=== PATIENT | male | born 2000 | race Caucasian/White ===

== ENCOUNTER 2022-01-08 19:10 | Emergency (ER) | payer OTHER, SELFPAY ==
[2022-01-08 19:22] VITALS: BP 148/88; PULSE 113; RESP 16; TEMP 36.9; O2SAT 98
--- NOTE | 2022-01-08 19:43 | ED.BACK ---
HPI - Back Pain/Injury General Chief Complaint: Back Pain/Injury Stated Complaint: low back pain Time Seen by Provider: 01/08/22 19:43 Source: patient Mode of arrival: ambulatory Limitations: no limitations History of Present Illness HPI Narrative: 21-year-old male presented for complaint of left low back pain radiating to leg after lifting heavy object at work 3 days ago. Endorses debilitating pain the following day with occasional numbness down the leg. Endorses it is improving and he is able to walk and move more today. Currently denies numbness, tingling, or weakness of the left lower extremity. Feels an ache when he sitting. He has taken ibuprofen and aspirin for symptoms. Endorses a history of sciatica secondary to herniated disks about 6 years ago. Related Data Home Medications Medication Instructions Recorded Confirmed atorvastatin 40 mg tablet 40 mg PO DAILY 01/08/22 01/08/22 ergocalciferol (vitamin D2) 1,250 1,250 mcg PO WEEKLY 01/08/22 01/08/22 mcg (50,000 unit) capsule fenofibrate 160 mg tablet 160 mg PO DAILY 01/08/22 01/08/22 Allergies Allergy/AdvReac Type Severity Reaction Status Date / Time No Known Allergies Allergy Verified 01/08/22 19:49 Review of Systems Review of Systems: CONSTITUTIONAL: Denies body aches, fever, chills CARDIOVASCULAR: Denies chest pain, palpitations, or edema. RESPIRATORY: Denies cough or dyspnea. GASTROINTESTINAL: Denies abdominal pain, nausea, vomiting, or diarrhea. SKIN: Denies rash, itching, or wounds. MUSCULOSKELETAL: reports low back pain NEUROLOGIC: Denies headache, tingling, or weakness. All systems reviewed & are unremarkable except as noted in HPI and below [facility] Comments At time of signature, I have reviewed and agree with nursing past medical, surgical, social and family history unless otherwise noted. Please see nursing chart for further information. There is no relevant family history pertinent to the presenting complaint Exam Narrative: GENERAL: appears in pain CHEST: Speaks in full sentences. No respiratory distress. HEART: Regular rate and rhythm. Normal and equal peripheral pulses. EXTREMITIES: No vertebral point tenderness. LLE has normal strength and sensation, slightly limited range of motion at left hip due to pain with movement. No ecchymosis, No point tenderness to hip. No open wounds or obvious deformity; alignment normal, pulse palpable and equal bilaterally, skin warm, dry, pink. Capillary refill less than 3 seconds. SKIN: Warm, dry, no rash. NEURO: Alert and oriented x3. PSYCH: Normal mood and affect Course Course Emergency Course: Patient is aware of diagnosis, understands and agrees to treatment plan. Anticipatory guidance given. Patient agrees to follow-up as directed and is aware of reasons to seek care at the emergency department. Portions of this record may have been created with voice recognition software Level of Care: Express Care Visit Vital Signs Vital signs: Vital Signs Temperature 98.4 F 01/08/22 19:22 Pulse Rate 113 H 01/08/22 19:22 Respiratory Rate 16 01/08/22 19:22 Blood Pressure 148/88 H 01/08/22 19:22 Pulse Oximetry 98 01/08/22 19:22 Oxygen Delivery Room Air 01/08/22 19:22 Temperature 98.4 F 01/08/22 19:22 Pulse Rate 113 H 01/08/22 19:22 Respiratory Rate 16 01/08/22 19:22 Blood Pressure 148/88 H 01/08/22 19:22 Pulse Oximetry 98 01/08/22 19:22 Oxygen Delivery Room Air 01/08/22 19:22 Reviewed MDM - Back Pain/Injury MDM Narrative Medical decision making narrative: Pt reports improvement in symptoms, will defer imaging. Advised supportive measures and signs/symptoms to go to the ER. Advised to closely follow-up with primary care provider regarding possible physical therapy or additional imaging if needed. Pt is appropriate for outpt treatment and f/u. Differential Diagnosis Differential diagnosis: Likely lumbar radiculopathy, sciatica, strain of lumbar r
== END 2022-01-08 20:08 | disposition home or self-care (01) ==
PROVIDERS: Emergency Provider Nurse Practitioner Family
DX: M54.16 Radiculopathy, lumbar region (principal); E78.00 Pure hypercholesterolemia, unspecified
CPT/HCPCS: 99213; G0463

== ENCOUNTER 2024-01-24 18:50 | Emergency (ER) | payer OTHER, SELFPAY ==
[2024-01-24 19:03] VITALS: BP 139/64; PULSE 91; RESP 18; TEMP 36.3; O2SAT 98
--- NOTE | 2024-01-24 19:53 | ED.GENADULT ---
HPI - General Adult General Chief complaint: Upper Respiratory Infection Stated complaint: Headache/Cough Source: patient Mode of arrival: ambulatory Limitations: no limitations History of Present Illness HPI narrative: Patient presents for evaluation of sinus symptoms for last 3 weeks. Symptoms include frontal and bilateral maxillary sinus congestion and tenderness, green nasal drainage, irritated throat in the morning, hot flashes and chills. No nausea, vomiting, diarrhea, cough or SOB. He tried taking OTC cough and cold medication for his symptoms. No recent sick contacts to his knowledge. Related Data Home Medications Medication Instructions Recorded Confirmed atorvastatin 40 mg tablet 40 mg PO DAILY 01/08/22 01/24/24 ergocalciferol (vitamin D2) 1,250 1,250 mcg PO WEEKLY 01/08/22 01/24/24 mcg (50,000 unit) capsule fenofibrate 160 mg tablet 160 mg PO DAILY 01/08/22 01/24/24 lisinopril 20 mg tablet 20 mg DIRECTED 01/24/24 01/24/24 metformin 500 mg tablet 500 mg DIRECTED 01/24/24 01/24/24 oxycodone-acetaminophen 5 mg-325 1 tablet DIRECTED 01/24/24 01/24/24 mg tablet tamsulosin 0.4 mg capsule 0.4 mg PO DIRECTED 01/24/24 01/24/24 Allergies Allergy/AdvReac Type Severity Reaction Status Date / Time No Known Allergies Allergy Verified 01/08/22 19:49 Review of Systems Review of Systems: CONSTITUTIONAL: Reports hot flashes and chills. EYES: Denies visual changes, redness, or discharge. ENT: Reports sinus congestion and thick green drainage from the nares CARDIOVASCULAR: Denies chest pain, palpitations, or edema. RESPIRATORY: Denies cough or dyspnea. GASTROINTESTINAL: Denies abdominal pain, nausea, vomiting, or diarrhea. GENITOURINARY: Denies dysuria or hematuria. SKIN: Denies rash or itching. MUSCULOSKELETAL: Denies back pain, joint pain, or myalgia. NEUROLOGIC: Denies headache, numbness, dizziness, or weakness. PSYCHIATRIC: Denies anxiety or depression. [facility] Past Medical History Medical History No pertinent past medical history Surgical History Surgical History No pertinent past surgical history Family History Family History Mother Family history non-contributory Social History Social History Substance use: never Living arrangements: with family Gender identity (if verbalized by the patient): Male Spiritual care concerns: No Exam Narrative: GENERAL: Well-appearing, well-nourished, and in no acute distress. HEAD: Normocephalic, atraumatic. EYES: PERRLA and EOMI. ENT: There is frontal bilateral maxillary sinus tenderness. Mucous membranes moist. Oropharynx without tonsillar hypertrophy exudate or other lesions. Bilateral TMs pearly esposito nonbulging NECK: Supple. No adenopathy or masses. No carotid bruits or JVD CHEST: Clear to auscultation. No respiratory distress. No wheezes rales or rhonchi HEART: Regular rate and rhythm. No murmur heard. Normal peripheral pulses. ABDOMEN: Soft, nontender, nondistended, normal active bowel sounds. EXTREMITIES: Normal range of motion. No edema. SKIN: Warm, dry, no rash. NEURO: No focal deficits. Alert and oriented x3. PSYCH: Normal mood and affect. Course Course Emergency Course: This is a 23-year-old male who presented for evaluation of sick symptoms. He meets criteria for ABRS based upon mucopurulent nature of nasal discharge and duration of time in which he has been symptomatic. Will discharge with Augmentin. Increase hydration. [id number] agents for symptom management. Follow up with primary provider. Go to the ER for worsening symptoms. Patient in agreement with plan of care Level of Care: Express Care Visit Vital Signs Vital signs: Vital Signs Temperature 36.3 C L
== END 2024-01-24 19:56 | disposition home or self-care (01) ==
PROVIDERS: Emergency Provider Nurse Practitioner; PCP Physician Assistant
DX: J32.9 Chronic sinusitis, unspecified (principal); Z79.891 Long term (current) use of opiate analgesic; Z79.899 Other long term (current) drug therapy
CPT/HCPCS: 99213; G0463